=== PATIENT | female | born 1980 | race Caucasian/White ===

== ENCOUNTER 2017-09-17 09:21 | Inpatient (IN) | payer MEDICAID ==
[2017-09-17] MEDS ORDERED: MISOPROSTOL 200 MCG TAB PR ×2 (13:00→18:00)
[2017-09-17] MEDS ORDERED: OXYTOCIN 30 UNITS/LR 500 ML IV ×4 (13:00→18:30)
[2017-09-17] MEDS ORDERED: CARBOPROST 250 MCG INJ IM ×2 (13:00→18:00)
[2017-09-17] MEDS ORDERED: METHYLERGONOVINE 0.2 MG INJ IM ×2 (13:00→18:00)
[2017-09-17] MEDS: LACTATED RINGER'S 500 ML IV (13:16)
[2017-09-17 13:34] LABS: ADD MAN DIFF? NO
[2017-09-17 13:38] LABS: BASOPHILS % 0.3 % (0.0-2.0); EOSINOPHILS % 0.3 % (0.0-7.0); HEMATOCRIT 37.3 % (37.0-47.0); HEMOGLOBIN 13.4 g/dl (12.0-16.0); LYMPHOCYTES # 1.2 10^3/ul (0.8-2.9); LYMPHOCYTES % 18.3 % (15.0-51.0); MEAN CORPUSCULAR HEMOGLOBIN 32.6 pg (29.0-33.0); MEAN CORPUSCULAR HGB CONC 35.9 g/dl (32.0-37.0); MEAN CORPUSCULAR VOLUME 90.8 fl (82.0-101.0); MONOCYTE # 0.4 10^3/ul (0.3-0.9); MONOCYTES % 6.3 % (0.0-11.0); NEUTROPHILS % 74.1 % (39.0-77.0); PLATELET COUNT 124 10^3/UL (140-415); RED BLOOD COUNT 4.11 10^6/ul (4.20-5.40); RED CELL DISTRIBUTION WIDTH 13.5 % (11.5-14.5)
[2017-09-17 13:38] LABS: WHITE BLOOD COUNT 6.7 10^3/ul (4.8-10.8)
[2017-09-17 13:50] LABS: INR 0.88; PT RATIO 0.9
[2017-09-17 13:51] LABS: PARTIAL THROMBOPLASTIN TIME 27.7 Sec (25.0-35.0)
[2017-09-17 15:04] LABS: HEPATITIS B SURFACE ANTIGEN NEGATIVE (NEGATIVE)
[2017-09-17] MEDS: LACTATED RINGER'S 1,000 ML IV ×2 (15:40→17:59)
[2017-09-17] MEDS: CLINDAMYCIN 900 MG/D5W (PMX) 50 ML IVPB (16:22)
[2017-09-17] MEDS ORDERED: CLINDAMYCIN 900 MG/D5W (PMX) 50 ML IVPB (16:23)
[2017-09-17] MEDS ORDERED: morphine SULFATE/PF (10 MG/10 ML) INJ (16:28)
[2017-09-17] MEDS ORDERED: FENTAnyl 50 MCG/ML VIAL (16:29)
[2017-09-17] MEDS ORDERED: PHENYLephrine (100 MCG/ML) 5ML SYG (16:36)
[2017-09-17] MEDS ORDERED: DEXAMETHASONE 4 MG/ML 1 ML INJ (16:40)
[2017-09-17] MEDS ORDERED: ONDANSETRON 4 MG INJ (16:41)
[2017-09-17] MEDS ORDERED: METHYLERGONOVINE 0.2 MG TAB PO (18:00)
[2017-09-17] MEDS ORDERED: LANOLIN 7 GM TUBE TOP (18:00)
[2017-09-17] MEDS ORDERED: CLINDAMYCIN 300 MG INJ IV (18:30)
[2017-09-17] MEDS ORDERED: ONDANSETRON 4 MG INJ IV (18:30)
[2017-09-17] MEDS: KETOROLAC 30 MG INJ IV (18:30)
[2017-09-17] MEDS: OXYTOCIN 30 UNITS/LR 500 ML IV ×2 (19:15→21:26)
[2017-09-17] MEDS ORDERED: CLINDAMYCIN 600 MG/D5W (PMX) 50 ML IVPB (19:30)
[2017-09-17] MEDS: SENNA/DOCUSATE NA (8.6MG/50MG) TAB PO (21:00)
[2017-09-17 22:17] LABS: RAPID PLASMA REAGIN NONREACTIVE (NR)
[2017-09-17] MEDS: CLINDAMYCIN 600 MG/D5W (PMX) 50 ML IVPB (22:37)
[2017-09-18] MEDS ORDERED: METOCLOPRAMIDE 10 MG INJ IV
[2017-09-18] MEDS: KETOROLAC 30 MG INJ IV ×4 (00:30→18:28)
[2017-09-18] MEDS: LACTATED RINGER'S 1,000 ML IV ×3 (01:59→17:59)
[2017-09-18] MEDS: CLINDAMYCIN 600 MG/D5W (PMX) 50 ML IVPB ×2 (04:45→10:34)
[2017-09-18] MEDS: SENNA/DOCUSATE NA (8.6MG/50MG) TAB PO ×2 (09:24→20:53)
[2017-09-18 10:09] LABS: ADD MAN DIFF? NO
[2017-09-18 10:14] LABS: BASOPHILS % 0.2 % (0.0-2.0); EOSINOPHILS % 0.1 % (0.0-7.0); HEMATOCRIT 31.8 % (37.0-47.0); LYMPHOCYTES # 1.5 10^3/ul (0.8-2.9); LYMPHOCYTES % 16.7 % (15.0-51.0); MEAN CORPUSCULAR HEMOGLOBIN 32.3 pg (29.0-33.0); MEAN CORPUSCULAR HGB CONC 34.6 g/dl (32.0-37.0); MEAN CORPUSCULAR VOLUME 93.3 fl (82.0-101.0); MEAN PLATELET VOLUME 10.7 fl (7.4-10.4); MONOCYTE # 0.7 10^3/ul (0.3-0.9); NEUTROPHIL # 6.8 10^3/ul (1.6-7.5); NEUTROPHILS % 74.6 % (39.0-77.0); PLATELET COUNT 112 10^3/UL (140-415); RED BLOOD COUNT 3.41 10^6/ul (4.20-5.40); RED CELL DISTRIBUTION WIDTH 13.3 % (11.5-14.5)
[2017-09-18 10:14] LABS: WHITE BLOOD COUNT 9.1 10^3/ul (4.8-10.8)
[2017-09-18] MEDS: INFLUENZA VIRUS VACCINE 0.5 ML SYG IM* (10:38)
[2017-09-18] MEDS: HYDROCODONE/APAP (5/325) TAB PO (17:19)
[2017-09-18] MEDS: AZITHROMYCIN 250 MG TAB PO (22:21)
[2017-09-19] MEDS: KETOROLAC 30 MG INJ IV (00:30)
[2017-09-19] MEDS: HYDROCODONE/APAP (5/325) TAB PO ×4 (00:50→21:46)
[2017-09-19] MEDS: SENNA/DOCUSATE NA (8.6MG/50MG) TAB PO ×2 (08:49→21:37)
[2017-09-19] MEDS: AZITHROMYCIN 250 MG TAB PO (08:50)
[2017-09-19] MEDS: BISACODYL (EC) 5 MG TAB PO (14:50)
[2017-09-19] MEDS: ALBUTEROL HFA 8 GM INHALER INH (17:16)
[2017-09-19] MEDS: NA PHOSPHATE/BIPHOS 133 ML ENEMA PR (21:48)
[2017-09-20] MEDS: ALBUTEROL HFA 8 GM INHALER INH (00:43)
[2017-09-20] MEDS: IBUPROFEN 800 MG TAB PO (06:11)
[2017-09-20] MEDS: AZITHROMYCIN 250 MG TAB PO (08:59)
[2017-09-20] MEDS: SENNA/DOCUSATE NA (8.6MG/50MG) TAB PO (08:59)
[2017-09-20] MEDS: MEASLES,MUMPS,RUBELLA VACCINE INJ SC* (09:00)
[2017-09-20] MEDS: DIPHTH/TET/ACEL PERTUSS (ADULT) 0.5 ML VIAL IM* (12:15)
== END 2017-09-20 16:08 | disposition home or self-care (01) | DRG 765 ==
LOC: OBT 09:21 → L-D 09:21 → OBT 13:00 → L-D 12:40 → PP1 20:52
PROVIDERS: Obstetrics & Gynecology
PROC: 10D00Z1 Extraction of Products of Conception, Low, Open Approach (ICD-10-PCS; principal; 2017-09-17 17:00)
PROC: 0UCC7ZZ Extirpation of Matter from Cervix, Via Natural or Artificial Opening (ICD-10-PCS; 2017-09-17 17:00)
PROC: 4A1HXCZ Monitoring of Products of Conception, Cardiac Rate, External Approach (ICD-10-PCS; 2017-09-17 17:00)
DX: O34.211 Maternal care for low transverse scar from previous cesarean delivery (principal); O34.33 Maternal care for cervical incompetence, third trimester; O99.52 Diseases of the respiratory system complicating childbirth; O36.63X0 Maternal care for excessive fetal growth, third trimester, not applicable or unspecified; J45.909 Unspecified asthma, uncomplicated; Z3A.38 38 weeks gestation of pregnancy; Z37.0 Single live birth; Z88.0 Allergy status to penicillin; Z23 Encounter for immunization
CPT/HCPCS: 71046; 76818; 85025; 85610; 85730; 86592; 86850; 86900; 86901; 87340; 90686; 90715; 94760; 99464